=== PATIENT | male | born 1950 | race Caucasian/White ===

== ENCOUNTER 2016-05-07 15:52 | Emergency (ER) | payer OTHER ==
--- NOTE | 2016-05-07 17:45 | ED CLINICAL REPORT ---
Clinical Report - Physicians/Mid Levels Located Within [facility] [address] [place] [address] 05/07/2016 15:51 Patient: ROBERTA PHILIP Time Seen: 1609May 07 2016. Arrived- By ambulance. Historian- patient and EMS personnel. HISTORY OF PRESENT ILLNESS Chief Complaint: BIZARRE BEHAVIOR. Symptoms started today. Substances abused: Ingests marijuana (first time). No nausea, vomiting, abdominal pain, tremors or seizure. Not confused. Reports trying a cookie with marijuana today for the first time , beljamarevdell everything is slow. Denies any injury. The symptoms are described as mild. REVIEW OF SYSTEMS The patient has not had weight loss. No headache, dizziness, palpitations or joint pain. No difficulty walking. All systems otherwise negative, except as recorded above. SOCIAL HISTORY History of drug use. Has social support. Has place to stay. ADDITIONAL NOTES The nursing notes have been reviewed. PHYSICAL EXAM Vital Signs: 05/07/2016 15:54 BP: 178/86. HR: 81. RR: 16. O2 saturation: 98%. Temp: 98.7 F. Pain level now: 7/10. Appearance: Alert. Head: Head atraumatic. ENT: Normal ENT inspection. Airway intact. Moist mucous membranes. Neck: Normal inspection. CVS: Normal heart rate and rhythm. Heart sounds normal. Respiratory: No respiratory distress. Breath sounds normal. Abdomen: Soft. No abdominal tenderness or organomegaly. Back: Normal inspection. No CVA tenderness. Skin: Skin warm. Normal skin color. Neuro: Alert. Oriented X 3. No cerebellar findings. PROGRESS AND PROCEDURES Course of Care: Pt feels great, with no signs of any injury, infectious etiology or distress. Patient is afebrile. Pt is stable, and his is here to pick him up, he desires to go home. no necessary medical interventions. Patient is stable. Symptoms better. Patient/family counseled. Disposition: Discharged. CLINICAL IMPRESSION Accidental single drug overdose (Marijuana). INSTRUCTIONS Stay with responsible adult family member (or other responsible adult). OTC Medications: Acetaminophen (available over the counter): take according to label instructions. (as needed for fevers) Follow-up: Follow up with doctor. (Electronically signed by Charline Phan P.A.-C 05/07/2016 18:22)
--- NOTE | 2016-05-07 17:45 | ED NURSING NOTES ---
Clinical Report - Nurses [facility] [address] [place] [address] 05/07/2016 15:51 Patient: ROBERTA PHILIP TRIAGE Chief Complaint: ACCIDENTAL INGESTION (Marijuana). Alert. No acute distress. ( Blood Sugar: 153). --16:02 Alexandru Rodríguez R.N. 15:54 05/07/16. BP: 178/86. HR: 81. RR: 16. O2 saturation: 98%. Temp: 98.7 F (oral). Pain level now: 10/22. --16:02 Alexandru Rodríguez R.N. Weight: 74.8 kg stated. Height/Length: 71 inches Per Patient. BMI: 23. --16:02 Alexandru Rodríguez R.N. Medications Avodart Oral. --15:58 Alexandru Rodríguez R.N. Lipitor Oral. --15:58 Alexandru Rodríguez R.N. MetFORMIN HCl Oral. --15:58 Alexandru Rodríguez R.N. OxyCODONE HCl Oral. --15:58 Alexandru Rodríguez R.N. PROzac Oral. --15:58 Alexandru Rodríguez R.N. Allergies No Known Drug Allergy. --15:58 Alexandru Rodrgíuez R.N. History ( Patient presents to the ED with symptoms of ingestion of an unknown quantity of marijuana in a cookie.). Admits to having hallucinations (everything is extremely slow). FALL RISK ASSESSMENT: Fall risk assessment completed. No fall risk identified. NUTRITIONAL RISK ASSESSMENT: The nutritional risk assessment revealed no deficiencies. FUNCTIONAL ASSESSMENT: Functional assessment: no impairments noted. LEARNING NEEDS ASSESSMENT: The learning needs assessment revealed no barriers. SKIN INTEGRITY ASSESSMENT: Skin integrity risk assessment completed. No skin integrity risk identified. --16:02 Alexandru Rodríguez R.N. PROBLEMS: Back Pain. --16:00 Alexandru Rodríguez R.N. ADDITIONAL SURGERIES: no known surgeries. PHYSICAL ASSESSMENT To room via stretcher. GENERAL / NEURO / PSYCH: Alert. Oriented X 4. Appears in no acute distress. Patient appears calm and cooperative. Speech within normal limits. RESPIRATORY: Respirations not labored. Breath sounds within normal limits. CVS: Capillary refill less than 2 seconds. GI / : Abdomen soft and nontender. Bowel sounds within normal limits. SKIN: Skin intact. Skin is warm and dry. Skin color is within normal limits. Affect appears within normal limits. --16:04 Alexandru Rodríguez R.N. NURSING PROGRESS NOTES Call light placed in reach. Side rails up x 1. Care transferred and report received (Medics). --16:04 Alexandru Rodríguez R.N. DISPOSITION / DISCHARGE Departure time: 1750 PM. Condition at departure: improved. The goals identified in the patient's plan of care were met. No learning barriers present. Reviewed medication(s) side effects, precautions, dosing and course information. Prescription(s) given to the patient. Patient verbalized understanding. Written instructions provided in Yi. The patient was discharged home and accompanied by spouse. He left the Emergency Department ambulatory and via private vehicle. Spouse driving. ( Educated patient on the effects of Marijuana and how to be safe when consuming the substance. Patient and patient's verbalized understanding.). FALL RISK ASSESSMENT: Fall risk assessment completed. No fall risk identified. --17:50 Alexandru Rodríguez R.N. 17:46 05/07/16. BP: 120/60. HR: 68. RR: 16. O2 saturation: 100% on room air. Temp: 98.2 F (oral). Pain level now: 0/10. --17:50 Alexandru Rodríguez R.N. Locked/Released at 05/07/2016 17:50 by Alexandru Rodríguez R.N.
--- NOTE | 2016-05-07 17:45 | ED CLINICAL REPORT ---
Clinical Report - Physicians/Mid Levels [facility] [address] [place] [address] 05/07/2016 15:51 Patient: ROBERTA PHILIP Time Seen: 1609May 07 2016. Arrived- By ambulance. Historian- patient and EMS personnel. HISTORY OF PRESENT ILLNESS Chief Complaint: BIZARRE BEHAVIOR. Symptoms started today. Substances abused: Ingests marijuana (first time). No nausea, vomiting, abdominal pain, tremors or seizure. Not confused. Reports trying a cookie with marijuana today for the first time , beljamarevdell everything is slow. Denies any injury. The symptoms are described as mild. REVIEW OF SYSTEMS The patient has not had weight loss. No headache, dizziness, palpitations or joint pain. No difficulty walking. All systems otherwise negative, except as recorded above. SOCIAL HISTORY History of drug use. Has social support. Has place to stay. ADDITIONAL NOTES The nursing notes have been reviewed. PHYSICAL EXAM Vital Signs: 05/07/2016 15:54 BP: 178/86. HR: 81. RR: 16. O2 saturation: 98%. Temp: 98.7 F. Pain level now: 7/10. Appearance: Alert. Head: Head atraumatic. ENT: Normal ENT inspection. Airway intact. Moist mucous membranes. Neck: Normal inspection. CVS: Normal heart rate and rhythm. Heart sounds normal. Respiratory: No respiratory distress. Breath sounds normal. Abdomen: Soft. No abdominal tenderness or organomegaly. Back: Normal inspection. No CVA tenderness. Skin: Skin warm. Normal skin color. Neuro: Alert. Oriented X 3. No cerebellar findings. PROGRESS AND PROCEDURES Course of Care: Pt feels great, with no signs of any injury, infectious etiology or distress. Patient is afebrile. Pt is stable, and his is here to pick him up, he desires to go home. no necessary medical interventions. Patient is stable. Symptoms better. Patient/family counseled. Disposition: Discharged. CLINICAL IMPRESSION Accidental single drug overdose (Marijuana). INSTRUCTIONS Stay with responsible adult family member (or other responsible adult). OTC Medications: Acetaminophen (available over the counter): take according to label instructions. (as needed for fevers) Follow-up: Follow up with doctor. (Electronically signed by Charline Phan P.A.-C 05/07/2016 18:22)
--- NOTE | 2016-05-07 18:22 | ED DISCHARGE INSTRUCTIONS ---
Patient: ROBERTA PHILIP General Instructions [facility] VisitID: [id number] [address] [place] [address] 65y, M Registration Date/Time: 05/07/2016 Accidental single drug overdose (Marijuana). INSTRUCTIONS Stay with responsible adult family member (or other responsible adult). OTC Medications: Acetaminophen (available over the counter): take according to label instructions. (as needed for fevers) Follow-up: Follow up with doctor. ADDITIONAL INFORMATION Accidental Ingestion:Non-Toxic [Adult] You have been evaluated and treated for taking too much of a medicine or swallowing a chemical product. There is no sign of toxic effect at this time. It is very unlikely that any new symptoms will appear. As a safeguard, you must be alert for symptoms during the next 24 hours (see below). The exact symptom will depend on what was swallowed. Home Care: If LIQUID CHARCOAL was given to neutralize what was swallowed, it will cause a black color to the stools for 1-2 days. Usually, a laxative (sorbitol) is given with charcoal to speed the removal of any toxins from the intestinal tract. This may cause diarrhea for up to 24 hours. If no laxative was given with charcoal, you may get constipated. If this occurs, you may take an krde-saa-fxreivc laxative such as Dulcolax pills or suppository. Prevention: Keep medicines, pesticides, and other household chemicals in their original containers. Clearly divine all harmful products if a different bottle is used. Follow Up with your doctor if all symptoms do not resolve within 24 hours or if constipation is not relieved by one or two doses of laxatives. Get Prompt Medical Attention if any of the following occur: Excess drowsiness or inability to be awakened Rapid heart beat, shakiness or seizure Fast breathing (over 25 breaths/minute) or slow breathing (less than 8 breaths/minute) Feeling shortness of breath Fever of 100.4F (38C) or higher, or as directed by your healthcare provider Vomiting or diarrhea for more than 24 hours Blood in stools or vomit (black or red color) Chest or abdominal pain Dizziness, weakness or fainting You have been given the following additional information: Overdose, Accidental (Adult) Stay with responsible adult family member (or other responsible adult). (Electronically signed by Charline Phan P.A.-C 05/07/2016 18:22)
--- NOTE | 2016-05-07 18:22 | ED MED RECONCILIATION SUMMARY ---
Patient: ROBERTA PHILIP Medication Reconciliation Report [facility] VisitID: [id number] [address] [place] [address] 65y, M Registration Date/Time: 05/07/2016 Weight: 74.8 kg Height/Length: 71 in. BMI: 23.0 ALLERGIES: No Known Drug Allergy The patient's Home Medications are listed below: THE FOLLOWING MEDICATIONS NEED TO BE RECONCILED: Avodart Oral Lipitor Oral MetFORMIN HCl Oral OxyCODONE HCl Oral PROzac Oral The source(s) of the original Home Medication information: Not obtained. The following Medications were given to the patient in the Emergency Department: None. The following Medications were prescribed to the patient: Acetaminophen (available over the counter): take according to label instructions.(as needed for fevers) -- Charline Phan P.A.-C
--- NOTE | 2016-05-07 18:22 | ED MAR SUMMARY ---
..... Medication Administration Record [facility] [address] [place], [place] [id number] Patient: ROBERTA PHILIP Visit ID: [id number] 65y, M Weight: 74.8 kg Height/Length: 71 in BMI: 23 ALLERGIES: No Known Drug Allergy
--- NOTE | 2016-05-07 18:22 | ED DISCHARGE INSTRUCTIONS ---
Patient: ROBERTA PHILIP General Instructions [facility] VisitID: [id number] [address] [place] [address] 65y, M Registration Date/Time: 05/07/2016 Accidental single drug overdose (Marijuana). INSTRUCTIONS Stay with responsible adult family member (or other responsible adult). OTC Medications: Acetaminophen (available over the counter): take according to label instructions. (as needed for fevers) Follow-up: Follow up with doctor. ADDITIONAL INFORMATION Accidental Ingestion:Non-Toxic [Adult] You have been evaluated and treated for taking too much of a medicine or swallowing a chemical product. There is no sign of toxic effect at this time. It is very unlikely that any new symptoms will appear. As a safeguard, you must be alert for symptoms during the next 24 hours (see below). The exact symptom will depend on what was swallowed. Home Care: If LIQUID CHARCOAL was given to neutralize what was swallowed, it will cause a black color to the stools for 1-2 days. Usually, a laxative (sorbitol) is given with charcoal to speed the removal of any toxins from the intestinal tract. This may cause diarrhea for up to 24 hours. If no laxative was given with charcoal, you may get constipated. If this occurs, you may take an gngq-qfw-vrljqir laxative such as Dulcolax pills or suppository. Prevention: Keep medicines, pesticides, and other household chemicals in their original containers. Clearly divine all harmful products if a different bottle is used. Follow Up with your doctor if all symptoms do not resolve within 24 hours or if constipation is not relieved by one or two doses of laxatives. Get Prompt Medical Attention if any of the following occur: Excess drowsiness or inability to be awakened Rapid heart beat, shakiness or seizure Fast breathing (over 25 breaths/minute) or slow breathing (less than 8 breaths/minute) Feeling shortness of breath Fever of 100.4F (38C) or higher, or as directed by your healthcare provider Vomiting or diarrhea for more than 24 hours Blood in stools or vomit (black or red color) Chest or abdominal pain Dizziness, weakness or fainting You have been given the following additional information: Overdose, Accidental (Adult) Stay with responsible adult family member (or other responsible adult). (Electronically signed by Charline Phan P.A.-C 05/07/2016 18:22)
--- NOTE | 2016-05-07 18:22 | ED MED RECONCILIATION SUMMARY ---
Patient: ROBERTA PHILIP Medication Reconciliation Report [facility] VisitID: [id number] [address] [place] [address] 65y, M Registration Date/Time: 05/07/2016 Weight: 74.8 kg Height/Length: 71 in. BMI: 23.0 ALLERGIES: No Known Drug Allergy The patient's Home Medications are listed below: THE FOLLOWING MEDICATIONS NEED TO BE RECONCILED: Avodart Oral Lipitor Oral MetFORMIN HCl Oral OxyCODONE HCl Oral PROzac Oral The source(s) of the original Home Medication information: Not obtained. The following Medications were given to the patient in the Emergency Department: None. The following Medications were prescribed to the patient: Acetaminophen (available over the counter): take according to label instructions.(as needed for fevers) -- Charline Phan P.A.-C
--- NOTE | 2016-05-07 18:22 | ED MAR SUMMARY ---
..... Medication Administration Record [facility] [address] [place], [place] [id number] Patient: ROBERTA PHILIP Visit ID: [id number] 65y, M Weight: 74.8 kg Height/Length: 71 in BMI: 23 ALLERGIES: No Known Drug Allergy
== END 2016-05-07 17:48 | disposition home or self-care (01) ==
LOC: ED SRH 15:52
DX: T40.7X1A Poisoning by cannabis (derivatives), accidental (unintentional), initial encounter (principal); R44.2 Other hallucinations